=== PATIENT | female | born 1995 | race Caucasian/White ===

== ENCOUNTER 2025-01-28 01:43 | Emergency (ER) | payer OTHER ==
[~2025-01-28] VITALS: Ht 157.5 cm; Wt 59.9 kg
[2025-01-28 01:43] VITALS: BP 117/72
[2025-01-28] MEDS: ONDANSETRON 4 MG/2 ML VIAL IV ONE (02:17)
[2025-01-28] MEDS: HYDROMORPHONE 1 MG/1 ML DISP.SYRIN IV ONE (02:17)
[2025-01-28] MEDS ORDERED: HYDROCODONE/APAP 10-325 MG TABLET ONE (02:18)
[2025-01-28] MEDS ORDERED: HYDR-4209 PO (02:19)
[2025-01-28] MEDS: HYDROCODONE/APAP 10-325 MG TABLET PO ONE (02:20)
[2025-01-28 02:32] VITALS: BP 117/72; TEMP 98; O2SAT 96
== END 2025-01-28 02:46 | disposition left against medical advice (07) ==
LOC: ER 01:56
DX: S20.219A Contusion of unspecified front wall of thorax, initial encounter (principal); R20.0 Anesthesia of skin; R53.1 Weakness; F17.210 Nicotine dependence, cigarettes, uncomplicated; J45.909 Unspecified asthma, uncomplicated; Z59.00 Homelessness unspecified; X58.XXXA Exposure to other specified factors, initial encounter; Y93.89 Activity, other specified; Y92.89 Other specified places as the place of occurrence of the external cause; Y99.8 Other external cause status
CPT/HCPCS: A4606; A4663